=== PATIENT | female | born 1970 | race Caucasian/White ===

== ENCOUNTER 2016-11-20 08:09 | Emergency (ER) | payer OTHER ==
[~2016-11-20] VITALS: Ht 157.5 cm; Wt 49.9 kg
[~2016-11-20 08:09] MED LIST: BACTRIM DS TAB1 EACH PO; PERCOCET 325 MG1 TA2 PO; TRAMADOL HCL50 M1 PO
--- NOTE | 2016-11-20 08:29 | ED MVC/FALL/TRAUMA COMPLAINT ---
History of Present Illness General Chief Complaint: Fall Stated Complaint: FELL YEST, L KNEE PAIN, R SHOULDER, FACE PAIN Source: patient, old records Exam Limitations: no limitations Vital Signs & Intake/Output Vital Signs & Intake/Output Vital Signs Date Time Temp Pulse Resp B/P B/P Pulse O2 O2 Flow FiO2 Mean Ox Delivery Rate 11/20 0813 96.3 85 20 116/88 97 Room Air Allergies Coded Allergies: Penicillins (Severe, RASH 03/25/16) erythromycin base (Severe, RASH 03/25/16) NSAIDS (Non-Steroidal Anti-Inflamma (UPSET STOMACH, INFLAMES PANCREASE 11/20/16) Reconcile Medications Oxycodone HCl/Acetaminophen (Percocet 5-325 MG Tablet) 5 MG-325 MG TABLET 1-2 TAB PO Q6P PRN severe pain Tramadol HCl (Ultram) 50 MG TABLET 1-2 TAB PO Q6PRN PRN moderate pain Tramadol HCl 50 MG TABLET 1 TAB PO BIDP PRN pain Triage Note: PT TO ED C/O R SHOULDER, L KNEE PAIN S/P TRIP AND FALL ON FRIDAY NIGHT. STATES SHE TRIPPED OVER A BROKEN CURB. HIT FACE, BUT DENIES LOC. PT NOTED WITH ABRASIONS TO FACE, R WRIST AND L KNEE. DECLINING MEDS IN TRIAGE. STATES SHE TOOK SOME TRAMADOL WITH NO RELIEF. Triage Nurses Notes Reviewed? yes Onset: 2 days Duration: day(s):, constant, continues in ED Timing: recent history Severity: moderate Injuries/Fall Location: face, upper extremity, lower extremity Method of Injury: direct blow, fall Loss of Consciousness: no loss of consciousness Modifying Factors: Improves With: rest. Worsens With: movement, palpation. Associated Symptoms: headache, trouble walking LMP (ages 10-50): unknown : No Patient currently breastfeeds: No HPI: 2 days prior to admission patient tripped and fell onto outstretched right wrist landing on her left knee and bridge of nose. She complains of pain to these areas. She also complains of pain to her right shoulder with limited range of motion sharp constant nonradiating worse with palpation and movement. She denies loss of consciousness fever chills nausea vomiting diarrhea abdominal pain chest pain shortness breath headache dysuria change in motor sensory function change in bowel bladder habit. Past History Travel History Traveled to [place] past 21 day No Medical History Any Pertinent Medical History? see below for history Neurological: NONE EENT: NONE Cardiovascular: hypertension Respiratory: NONE Gastrointestinal: NONE Hepatic: NONE Renal: NONE Musculoskeletal: rheumatoid arthritis Psychiatric: NONE Endocrine: NONE Blood Disorders: NONE Cancer(s): NONE SEVERITY OF ILLNESS COORDINATOR/Reproductive: NONE Surgical History Surgical History: non-contributory Psychosocial History What is your primary language Salvadorean Tobacco Use: Current Daily Use Daily Tobacco Use Amount/Type: => 5 Cigarettes daily ETOH Use: denies use Illicit Drug Use: denies illicit drug use Family History Hx Contributory? No Review of Systems Review of Systems Constitutional: Reports: no symptoms. Eyes: Reports: no symptoms. Ears, Nose, Throat, Mouth: Reports: no symptoms. Respiratory: Reports: no symptoms. Cardiovascular: Reports: no symptoms. Gastrointestinal/Abdominal: Reports: no symptoms. Genitourinary: Reports: no symptoms. Musculoskeletal: Reports: see HPI, joint pain, muscle pain, muscle stiffness. Skin: Reports: see HPI, rash. Neurological/Psychological: Reports: no symptoms. All Other Systems: Reviewed and Negative Physical Exam Physical Exam General Appearance: well developed/nourished, alert, awake, anxious, mild distress, thin Head: evidence of injury, contusions (bridge of nose w/o widening), tenderness Eyes: Bilateral: normal appearance, PERRL, EOMI, normal inspection. Ears, Nose, Throat, Mouth: hearing grossly normal, moist mucous membrane Neck: normal inspection, supple, full range of motion, normal alignment Respiratory: normal breath sounds, chest non-tender, no respiratory distress, quiet respiration, lungs clear Cardiovascular: regular rate/rhythm, normal peripheral pulses, norml femoral pulses equa Peripheral Pulses: 4+ carotid (R), 4+ carotid (L) Gastrointestinal: normal bowel sounds, soft, non-tender, no organomegaly Back: normal inspection, normal range of motion Extremities: evidence of injury, bony-point tenderness (R ac jt, L knee), limited range of motion, pain with movement, straight leg raised, tenderness, no ligament instability Neurologic/Psych: no motor/sensory deficits, awake, alert, oriented x 3, normal gait, normal mood/affect, drapery maker II-XII nml as tested Skin: normal color, abrasion R wrist dorsum, contusion L medial knee Christopher Coma Score [place] Coma Score Response Value Best Eye Response ([place]): open spontaneously 4 Best Verbal Response: oriented 5 Best Motor Response: obeys commands 6 Total 15 Core Measures ACS in differential dx? No Severe Sepsis Present: No Septic Shock Present: No Progress Differential Diagnosis: ext injury Plan of Care: Orders Procedure Date/time Status XRY-SHOULDER COMPLETE-RIGHT 11/20 826 Active XRY-KNEE COMPLETE LEFT 11/20 826 Active Diagnostic Imaging: Viewed by Me: Radiology Read. Discussed w/RAD: Radiology Read. Radiology Impression: no fracture, no dislocation, small left knee effusion, rotator cuff tear Departure Departure Time of Disposition: 838 Disposition: HOME OR SELF CARE Condition: Stable Clinical Impression Primary Impression: Nasal contusion Secondary Impressions: Abrasion of right wrist, initial encounter Effusion, left knee Rotator cuff injury Qualifiers: Encounter type: initial encounter Laterality: right Qualified Code: S46.001A - Unspecified injury of muscle(s) and tendon(s) of the rotator cuff of right shoulder, initial encounter Referrals: ANILA SIMON,RAYA Tracey (PCP/Family) STACIE RICHTER,JULIA Reza Call for orthopedic follow up Departure Forms: Customer Survey General Discharge Information Prescriptions: Current Visit Scripts Oxycodone HCl/Acetaminophen (Percocet 5-325 MG Tablet) 1-2 TAB PO Q6P PRN severe pain #15 TAB Tramadol HCl (Ultram) 1-2 TAB PO Q6PRN PRN moderate pain #30 TAB
--- NOTE | 2016-11-20 09:35 | RADIOLOGY REPORT ---
EXAMINATION: XR SHOULDER, KNEE RIGHT CLINICAL INFORMATION: Pain status post fall. COMPARISON: None TECHNIQUE: 3 views of the shoulder, 4 views of the knee. FINDINGS: The bones and soft tissues are normal. No fracture. Glenohumeral and acromioclavicular alignment is anatomic with normal joint space. No abnormal soft tissue calcifications. There is a small joint effusion in the knee. There is mild superior subluxation of the humeral head raising the question of an underlying rotator cuff tear. IMPRESSION: No fracture or dislocation is seen.
[2016-11-20] MEDS ORDERED: ULTRAM50 M1 PO (09:43)
[2016-11-20] MEDS ORDERED: PERCOCET 5-3251 EACH PO (09:43)
[2016-11-20 09:51] VITALS: BP 120/74
== END 2016-11-20 09:52 ==
LOC: ERH 08:09
DX: S00.33XA Contusion of nose, initial encounter (principal); S60.811A Abrasion of right wrist, initial encounter; M25.462 Effusion, left knee; M25.511 Pain in right shoulder; W01.0XXA Fall on same level from slipping, tripping and stumbling without subsequent striking against object, initial encounter; Y93.9 Activity, unspecified; Y92.9 Unspecified place or not applicable
CPT/HCPCS: 73030-RT; 73562-LT